=== PATIENT | male | born 1980 | race Caucasian/White ===

== ENCOUNTER → 2016-04-14 | Outpatient (CLI) | payer OTHER ==
[~2016-04-14] VITALS: Ht 188 cm; Wt 90.7 kg
[~2016-04-14] MED LIST: BENICAR20 MG PO; MOTRIN800 MG PO; NEXIUM40 MG PO; TYLENOL EXTRA500 MG PO
== END | disposition home or self-care (01) ==
LOC: AMB 12:53
PROC: 0DJD8ZZ Inspection of Lower Intestinal Tract, Via Natural or Artificial Opening Endoscopic (ICD-10-PCS; principal; 2016-04-14)
DX: K92.1 Melena (principal); K64.9 Unspecified hemorrhoids; I10 Essential (primary) hypertension; K21.9 Gastro-esophageal reflux disease without esophagitis; K44.9 Diaphragmatic hernia without obstruction or gangrene; M54.5 Low back pain; M47.816 Spondylosis without myelopathy or radiculopathy, lumbar region
CPT/HCPCS: B4087; J2250